=== PATIENT | female | born 2005 | race African-American/Black ===

== ENCOUNTER 2025-03-09 11:15 | Emergency (ER) | payer MEDICAID ==
[~2025-03-09] VITALS: Ht 180.3 cm; Wt 95.5 kg
[~2025-03-09 11:15] MED LIST: FLUT16SP2 BOTHNARES
[2025-03-09 12:02] LABS: BASOPHILS % (AUTO) 0.3 % (0-1); EOSINOPHILS % (AUTO) 0.6 % (0-6); HEMATOCRIT 36.2 % (35.0-45.0); HEMOGLOBIN 12.1 g/dl (12.0-16.0); LYMPHOCYTES # (AUTO) 1.4 X10'3 (1.1-4.8); LYMPHOCYTES % (AUTO) 19.4 % (21-51); MEAN CORPUSCULAR HEMOGLOBIN 28.5 PG (27.0-31.0); MEAN CORPUSCULAR HGB CONC 33.5 g/dL (33.0-36.5); MEAN PLATELET VOLUME 8.6 FL (7.4-10.4); MONOCYTES # (AUTO) 0.3 X10'3 (0-0.9); MONOCYTES % (AUTO) 4.8 % (2-12); NEUTROPHILS # (AUTO) 5.3 X10'3 (1.8-7.7); NEUTROPHILS % (AUTO) 74.9 % (42-75); PLATELET COUNT 256 X10'3 (140-440); RED BLOOD COUNT 4.26 X10'6 (4.20-5.60)
[2025-03-09 12:16] LABS: ALANINE AMINOTRANSFERASE 15 U/L (12-78); ALBUMIN 3.5 G/DL (3.4-5.0); ALKALINE PHOSPHATASE 82 IU/L (20-180); ANION GAP 7 (8-16); ASPARTATE AMINO TRANSFERASE 7 U/L (10-37); BILIRUBIN,TOTAL 0.3 MG/DL (0.1-1.0); BLOOD UREA NITROGEN 8 MG/DL (7-18); BUN/CREATININE RATIO 13.1 (10.0-20.0); CALCIUM 9.1 MG/DL (8.5-10.1); CHLORIDE 108 MMOL/L (99-107); CREATININE 0.61 MG/DL (0.40-0.90); GLUCOSE 102 MG/DL (70-104); LIPASE 27 U/L (16-77); POTASSIUM 4.7 MMOL/L (3.5-5.1); SODIUM 144 MMOL/L (135-145); TOTAL CARBON DIOXIDE 29.2 MMOL/L (24-32); TOTAL PROTEIN 6.9 G/DL (6.4-8.2); eCRCL 166 ML/MIN; eGFR > 90 ML/MIN
[2025-03-09 12:46] LABS: BILIRUBIN,URINE NEGATIVE (Neg); CLARITY,URINE CLEAR (Clear); COLOR,URINE YELLOW (Yellow); GLUCOSE, URINE NEGATIVE (Neg); KETONES,URINE NEGATIVE (Neg); LEUKOCYTE ESTERASE ,URINE NEGATIVE (Neg); NITRITES, URINE NEGATIVE (Neg); OCCULT BLOOD,URINE NEGATIVE (Neg); PROTEIN,URINE NEGATIVE (Neg); UROBILINOGEN,URINE 0.2 E.U/dL (0.2-1.0)
[2025-03-09 12:50] LABS: UA COLLECTION TYPE CLN CATCH MIDSTREAM
[2025-03-09 12:59] LABS: URINE HCG NEGATIVE (NEG)
--- NOTE | 2025-03-09 14:34 | Physician Documentation ---
History of Present Illness Chief Complaint: Abdominal Pain Stated Complaint: LOWER ABD PAIN Time Seen by MD: 12:58 HPI Patient is seen today with complaints of pelvic pain/left lower quadrant abdominal pain that started acute onset this morning around the time she had a bowel movement. Patient feels like it is some kind of pelvic cramping or severe pelvic cramps or possibly ovarian pain. Patient states she just finished her menstrual cycle a few days ago. Patient denies any current vaginal discharge or bleeding. Patient states the pain has subsided a decent amount over the last few hours with a still present. Patient denies any current nausea or vomiting o r diarrhea or chest pain or shortness of breath. She has no other concern or complaint at this time. Patient denies any previous live births and does not have any children currently. Medication Reconciliation Allergies: Coded Allergies: cephalexin (Verified Allergy, Unknown, 09/11/17) Scheduled Fluticasone Propionate (Flonase), 2 SPRAYS BOTHNARES QHS Past Medical History Drug Use: none Review of Systems Constitutional: Denies: chills, fever, weakness Eyes: Denies: pain, blurred vision ENT: Denies: ear pain, nose pain, throat pain, mouth pain Respiratory: Denies: cough, shortness of breath Cardiovascular: Denies: chest pain, palpitations Gastrointestinal: Denies: abdominal pain, nausea, vomiting Genitourinary: Denies: burning, dysuria Female Genitalia: Denies: vaginal discharge, pelvic pain Neurological: Denies: headache, dizziness Musculoskeletal: Denies: pain, swelling Integumentary: Denies: rash, lesions Allergic/Immunologic: Denies: hives, itching Hematologic/Lymphatic: Denies: no symptoms reported Psychiatric: Denies: depression, anxiety Physical Exam Vital Signs: Temperature: 97.2, Source: Oral, Heart Rate: 74, Respiratory Rate: 18, BP: 116/64, Pulse Oximetry: 98, Weight: 95.500 Physical Exam General: Awake and Alert, no acute distress. HEENT: Conjunctiva pink, Sclera clear, Mucus Membranes moist. Neck: Supple without masses and tenderness. Resp: Unlabored. Lungs clear to auscultation bilaterally. Heart: Regular Rate and rhythm, normal S1 and S2 without murmur, rub or gallop. Abdomen: On initial abdominal exam in triage the patient did have significant tenderness to palpation in the left lower quadrant and less so in the right lower quadrant/left pelvic area versus the right pelvic area. Patient has no rebound tenderness. Upon reexamination after the ultrasound was performed a few hours later the patient now has no significant tenderness to palpation of the abdomen in any quadrant or the pelvis. There is no rebound tenderness. No masses, no guarding. Extremities: No cyanosis,clubbing or edema. Skin: Warm and Dry. Progress Results/Orders Results/Orders Orders - LANRE HERNANDEZ PAC Ultrasound Pelvis W/Orwo Dplx (03/09/25 14:20) Vital Signs 03/09/25 11:18 Temp 97.2 Pulse 74 Resp 18 B/P (MAP) 116/64 Pulse Ox 98 Laboratory Tests Test 03/09/25 11:23 03/09/25 11:42 Urine Specimen Description Cln catch midstream Urine Color Yellow Urine Clarity Clear Urine pH 6.0 Urine Specific Perkins 1.020 Urine Protein Negative Urine Glucose (UA) Negative Urine Ketones Negative Urine Occult Blood Negative Urine Nitrite Negative Urine Bilirubin Negative Urine Urobilinogen 0.2 Urine Leukocyte Esterase Negative Urine Culture Indicated Not ind Volume Urine Centrifuged 10 ml Urine HCG, Qualitative Negative Urine Comment White Blood Count 7.0 Red Blood Count 4.26 Hemoglobin 12.1 Hematocrit 36.2 Mean Corpuscular Volume 85.0 Mean Corpuscular Hemoglobin 28.5 Mean Corpuscular Hemoglobin Concent 33.5 Red Cell Distribution Width 13.0 Platelet Count 256 Mean Platelet Volume 8.6 Neutrophils (%) (Auto) 74.9 Lymphocytes (%) (Auto) 19.4 L Monocytes (%) (Auto) 4.8 Eosinophils (%) (Auto) 0.6 Basophils (%) (Auto) 0.3 Neutrophils # (Auto) 5.3 Lymphocytes # (Auto) 1.4 Monocytes # (Auto) 0.3 Eosinophils # (Auto) 0.0 Basophils # (Auto) 0.0 CBC Comment Sodium Level 144 Potassium Level 4.7 Chloride Level 108 H Carbon Dioxide Level 29.2 Anion Gap 7 L Blood Urea Nitrogen 8 Creatinine 0.61 Estimated GFR/1.73 m2 > 90 BUN/Creatinine Ratio 13.1 Glucose Level 102 Calcium Level 9.1 Total Bilirubin 0.3 Aspartate Amino Transf (AST/SGOT) 7 L Alanine Aminotransferase (ALT/SGPT) 15 Alkaline Phosphatase 82 Total Protein 6.9 Albumin 3.5 Globulin 3.4 Albumin/Globulin Ratio 1.0 L Lipase 27 Chemistry Comments EKG/XRAY/CT/US/VASC/MRI Ultrasound : Impression ULTRASOUND Patient: RENATE HESS Medical Record: [id number] [facility] : 2005, Age: 19 Sex: Female Location: ER Patient Status: [facility] ER Service Date/Time: 03/09/251419 Ordering Physician: LANRE HERNANDEZ PAC Exam: ULTRASOUND PELVIS W/ORWO DPLX INDICATION: lower abd pain/pelvic pain TECHNIQUE: US ULTRASOUND PELVIS W/ORWO DPLX Multiple real-time grayscale transabdominal sonographic images along with color and duplex Doppler of the uterus and ovaries were obtained. COMPARISON: None FINDINGS: The uterus measures 7.42 x 3.37 x 4 cm. Free fluid adjacent to the uterus in the cul-de-sac. The endometrial stripe measures 2.3mm. The right ovary measures 4.81 x 3 x 4.02 cm. Free fluid surrounding the right ovary adjacent to the uterus. Questionable hydrosalpinx. Anechoic structure measuring 3.78 x 2.92 by 1.89 cm may represent ovarian abscess. Positive Doppler flow. The left ovary measures 4.4 x 2.42 x 2.89 cm. Positive Doppler flow. Subsequent color and duplex Doppler interrogation of the ovaries demonstrated symmetric vascular flow to both ovaries, though this does not exclude the possibility of torsion due to the dual blood supply. IMPRESSION: 1. Uterus unremarkable with no IUP. Fluid around the uterus and in the right adnexa and cul-de-sac. 2. 3.78 x 2.92 x 1.89 cm anechoic structure adjacent to the right ovary. Positive Doppler vascular flow. Questionable hydrosalpinx on the right. 3. Ovary appears normal with normal Doppler flow. HS:Y Electronically Signed by:HUSSEIN JARAMILLO Jr. DO Date & Time: 03/09/251802 Dictated by: HUSSEIN JARAMILLO Jr. DO Dictation date and time: 03/09/251802 Primary Care Provider: NO PRIMARY CARE PROVIDER cc: LANRE HERNANDEZ PAC ~ Medical Decision Making Findings Patient is seen today with complaints of pelvic pain/left lower quadrant abdominal pain that started acute onset this morning around the time she had a bowel movement. Patient feels like it is some kind of pelvic cramping or severe pelvic cramps or possibly ovarian pain. Patient states she just finished her menstrual cycle a few days ago. Patient denies any current vaginal discharge or bleeding. Patient states the pain has subsided a decent amount over the last few hours with a still present. Patient denies any current nausea or vomiting or diarrhea or chest pain or shortness of breath. She has no other concern or complaint at this time. Patient denies any previous live births and does not have any children currently. Patient also complaining of a yeast infection of the vagina with vaginal pruritus. Ultrasound of the pelvis did show no sign of ovarian torsion and no intrauterine , there was some fluid around the uterus in the right adnexa. Patient did have 3 cm mass next to right ovary consistent with likely ovarian cyst. Patient was given Toradol 30 mg IM in the ED tonight. Prescription of ibuprofen 800 mg one tab 3 times a day sent to patient pharmacy. Patient was also given Tylenol 975 mg by mouth in the ED tonight. Patient will follow up with primary care for referral to OB Gyne for further eval and treatment. Patient will return to the ED with any worsening, concerning or changing symptoms. Prescription of Diflucan 150 mg one tab to be taken by mouth once and may repeat 72 hours later as needed sent to patient pharmacy. Differential Dx:Considerations: Include: AAA, -Complete, - Incomplete, -Inevitable, -Missed, -Threatened, Abruptio placentae, Angina/AK, Aortic dissection, Appendicitis, Bowel obstruction, Cholangitis, Cholelithasis, Constipation, Diverticular disease, Esophageal rupt ure, Esophagitis, Gastritis/PUD, Gastroenteritis, GI hemorrhage, Hernia, Hepatitis, Inflammatory BD, Ischemic bowel, Ovarian cyst/torsion, Pancreatitis, PID, Porphyria, Trauma, intraabdominal, Urinary obstruction, Urinary tract infection, Urolithiasis, Other Departure Impression: Primary Impression: Ovarian cyst Qualified Codes: N83.201 - Unspecified ovarian cyst, right side Additional Impression: Vulvovaginal candidiasis Discharge Instructions: Abdominal Pain (Nonspecific) Additional Instructions: Ultrasound of the pelvis did show no sign of ovarian torsion and no intrauterine , there was some fluid around the uterus in the right adnexa. Patient did have 3 cm mass next to right ovary consistent with likely ovarian cyst. Patient was given Toradol 30 mg IM in the ED tonight. Prescription of ibuprofen 800 mg one tab 3 times a day sent to patient pharmacy. Patient was also given Tylenol 975 mg by mouth in the ED tonight. Patient will follow up with primary care for referral to OB Gyne for further eval and treatment. Patient will return to the ED with any worsening, concerning or changing symptoms. Referrals: NO PRIMARY CARE PROVIDER (PCP) Prescriptions Fluconazole* (Diflucan*) 150 Mg Tablet 1 TAB PO as directed, #2 TAB Prov: LANRE HERNANDEZ 03/09/25 Ibuprofen (Ibuprofen) 800 Mg Tablet 1 TAB PO Q8H for pain for 10 Days, #30 TAB 0 Refills Prov: LANRE HERNANDEZ 03/09/25 Signature Scribe Signature: No scribe Attestation: No scribe LANRE HERNANDEZ March 09, 2025 14:34
--- NOTE | 2025-03-09 18:06 | RADIOLOGY REPORT ---
INDICATION: lower abd pain/pelvic pain TECHNIQUE: US ULTRASOUND PELVIS W/ORWO DPLX Multiple real-time grayscale transabdominal sonographic images along with color and duplex Doppler of the uterus and ovaries were obtained. COMPARISON: None FINDINGS: The uterus measures 7.42 x 3.37 x 4 cm. Free fluid adjacent to the uterus in the cul-de-sac . The endometrial stripe measures 2.3mm. The right ovary measures 4.81 x 3 x 4.02 cm. Free fluid surrounding the right ovary adjacent to the u terus. Questionable hydrosalpinx. Anechoic structure measuring 3.78 x 2.92 by 1.89 cm may represent ovarian abscess. Positive Doppler flow. The left ovary measures 4.4 x 2.42 x 2.89 cm. Positive Doppler flow. Subsequent color and duplex Doppler interrogation of the ovaries demonstrated symmetric vascular flow to both ovaries, though this does not exclude the possibility of torsion due to the dual blood suppl y. IMPRESSION: 1. Uterus unremarkable with no IUP. Fluid around the uterus and in the right adnexa and cul-de-sac. 2. 3.78 x 2.92 x 1.89 cm anechoic structure adjacent to the right ovary. Positive Doppler vascular f low. Questionable hydrosalpinx on the right. 3. Ovary appears normal with normal Doppler flow. HS:Y
[2025-03-09] MEDS: acetaminophen 325mg tablet PO STA (19:22)
[2025-03-09] MEDS: ketorolac trometh 30MG/ML vial 30 MG/ML VIAL IM STA (19:23)
[2025-03-09] MEDS ORDERED: IBUP-1986 PO (19:26)
[2025-03-09] MEDS ORDERED: DIF150T PO (19:26)
[2025-03-09 19:32] VITALS: BP 120/74; PULSE 69; RESP 16; TEMP 97.2; O2SAT 98
== END 2025-03-09 19:34 | disposition home or self-care (01) ==
LOC: ER 11:15
DX: N83.201 Unspecified ovarian cyst, right side (principal); B37.31 Acute candidiasis of vulva and vagina; Z88.1 Allergy status to other antibiotic agents; Z79.899 Other long term (current) drug therapy
CPT/HCPCS: 36415; 76830; 76856; 80053; 81003; 81025; 83690; 85025; 93976; 96372; 99285; J1885